=== PATIENT | female | born 2005 | race Hispanic/Latino ===

== ENCOUNTER 2024-04-23 18:01 | Emergency (ER) | payer OTHER, SELFPAY ==
[2024-04-23 18:14] VITALS: BP 122/84
[2024-04-23 19:24] VITALS: BMI 28.3
--- NOTE | 2024-04-23 20:21 | ED.SKININJ ---
HPI-Injury
General
Chief Complaint: Bite
Source: patient
Exam Limitations: none
Time Seen by Provider: 04/23/24 20:21
History of Present Illness-Injury
Initial Injury comments:
See MDM
Past History
Past History
ED Past Medical History: None
ED Past Surgical History: None
Social History
Tobacco: Non-smoker
Alcohol: None
Phy Exam
Physical Exam
Physical Exam:
See MDM
Course
Orders/Labs/Results
Orders:
Orders
04/23/24 20:25
Amoxicillin 875 mg/Clav 125 mg [Augmentin 875 mg/125 mg] 1 tablet PO NOW STA
Ibuprofen [Motrin] 600 mg PO NOW STA
Tetanus/Diphth/Acelpertussis [Adacel] 0.5 ml IM .ONCE ONE
Vital Signs
Initial and Last Documented VS:
Initial Vital Signs
Temp Pulse Resp BP Pulse Ox
98.2 F 77 16 122/84 97
04/23/24 18:14 04/23/24 18:14 04/23/24 18:14 04/23/24 18:14 04/23/24 18:14
Last Documented Vital Signs
Temp Pulse Resp BP Pulse Ox
98.2 F 77 16 122/84 97
04/23/24 18:14 04/23/24 18:14 04/23/24 18:14 04/23/24 18:14 04/23/24 18:14
MDM/Problems Addressed
Differential Diagnosis Includes:
HPI and MDM Narrative:
18-year-old female presenting for evaluation of multiple superficial dog bites. Patient states she was trying to stop her dog from attacking the goat. She tried to pull the dog back and the dog nipped at her right hand. She is unsure about her
last tetanus shot.
On exam, patient has multiple very superficial cuts to the pulp of right fingers 1 through 4. There is no bony tenderness to necessitate an x-ray
Will clean out the areas, update tetanus and start Augmentin
Physical exam
General: Well appearing and non-toxic
HEENT: protecting airway
Neck: appears supple
CV: No evidence of cyanosis
Resp: No accessory muscle use
Abd: Non-distended
Extremities: No deformities
Neuro: alert
Psych: Normal affect
Skin: Superficial cuts to pulp of right fingers 1 through 4
Problems Addressed including Acute and Chronic Conditions affecting care:
1. Dog bite
Acuity: acute
Prognosis: stable
Details: Cuts are superficial but will start Augmentin
Differential Diagnosis (but not limited to): Dog bite, abrasion, laceration
Testing considered: Hand x-ray but there is no bony tenderness
Drug therapy (if applicable): OTC meds, please see d/c instruction regarding Rx drugs
Amount and/or Complexity of Data Reviewed
Clinical info obtained from: Patient
External data reviewed: N/A
Labs I independently reviewed (but not limited to): N/A
Radiology: N/A
Pulse Ox: not hypoxic
EKG independently reviewed: N/A
Gathering Machine Setter: N/A
Critical Care: N/A
Risk of Complication:
Social Determinants of health: Good social support
Discussed with other providers: N/A
Escalation of Care includes Admit/Obs: After being observed in the Emergency Department, pt stable for discharge.
Occasional wrong word or 'sound a like' substitutions may have occurred due to the inherent limitations of voice recognition software. Read the chart carefully and recognize, using context, where substitutions have occurred.
*Critical Care Note
Total Time (30-74mins, 75-104mins- exclusive of procedures): Not Applicable
ED Attending Note
-
Portions of this chart may have been created with voice recognition software.� Occasional wrong word or��sound alike� substitutions may have occurred due to the inherent limitations of voice recognition software.
Discharge Plan
Departure
Patient Disposition: Home (Routine Discharge)
Date of Disposition: 04/23/24
Time of Disposition: 20:27
Patient with high blood pressure during this ER visit?: No
Discharge Problem:
Dog bite
Instructions: Animal Bites (DC)
Prescriptions:
New
amoxicillin-pot clavulanate 875-125 mg tablet
1 tab PO BID Qty: 14 0RF
Referrals:
UNKNOWN - PT DOES,NOT KNOW [Family Provider] -
Activity Restrictions/Additional Instructions:
Watch for worsening signs of infection: fever over 100.5', increasing pain, red streaks around wound, swelling, or increasing drainage of pus. If any of these happen, return to ED promptly. Make sure that you take all your antibiotics as directed
and finish your prescription even if you feel better before the bottle is empty.
Please return for any worsening symptoms.
You may return at any time if you have further concerns.
Please follow up with your doctor at the first available appointment, preferably this week.
Thank you for choosing [facility].
Interventions
Interventions:
*Risk Screen - Suicide Last Done: 04/23/24 18:14
*General Assessment Last Done: 04/23/24 19:25
*Neglect/Abuse Screening Last Done: 04/23/24 18:14
*ED COVID-19 Vaccine History Last Done: 04/23/24 19:25
ED-Skin Assessment Last Done: 04/23/24 19:27
Discharge Date and Time
Print Language: INDONESIAN
[2024-04-23] MEDS: AUGMENTIN 875 MG/125 MG 1 TABLET PO (20:32)
[2024-04-23] MEDS: MOTRIN 600 MG PO (20:33)
[2024-04-23] MEDS: ADACEL 0.5 ML IM (20:34)
== END 2024-04-23 20:46 | disposition home or self-care (01) ==
LOC: EMR 18:01
PROVIDERS: EMERGENCY PHYSICIAN Student in an Organized Health Care Education/Training Program
DX: S61.411A Laceration without foreign body of right hand, initial encounter (principal); W54.0XXA Bitten by dog, initial encounter; Z23 Encounter for immunization
CPT/HCPCS: 90471; 99283; 90715